=== PATIENT | male | born 1980 | race Caucasian/White ===

== ENCOUNTER 2021-05-04 22:32 | Inpatient (IN) | payer SELFPAY ==
[~2021-05-04] VITALS: Ht 170.2 cm; Wt 77.8 kg
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
[2021-05-04] MEDS ORDERED: PROPOFOL 10 MG/ML (20ML) VIAL. IV ONE (23:15)
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
[2021-05-04 23:35] VITALS: BP 148/84
--- NOTE | 2021-05-05 00:12 | RAD ---
XR EXAM OF ANKLE_RIGHT 2 VIEWS Clinical Indication: Reason: POST reduction / Spl. Instructions: / History: Comparison: Right ankle, 2 views, earlier same day. Findings: The tibiotalar articulation is now normal post reduction. Angulated fracture of the distal fibula has improved alignment. Lateral displacement of the distal fracture fragment has been reduced. Posterior displacement is improved. No acute fracture of the medial malleolus is identified. There is soft tis hemant swelling of the ankle. IMPRESSION: Successful reduction. Electronically signed by: Jaguar Miranda MD (05/05/2021 12:10 AM) [facility]
[2021-05-05] MEDS ORDERED: IV NORMAL SALINE 1000ML BAG 1,000 ML IV ONE (00:30)
[2021-05-05] MEDS ORDERED: ONDANSETRON PF 4 MG/2 ML VIAL. IVP PRN (00:30)
[2021-05-05 02:00] VITALS: BP 139/88
[2021-05-05] MEDS: MORPHINE SULFATE 4 MG/ML INJ. IVP PRN ×4 (02:01→08:27)
[2021-05-05 07:00] VITALS: BP 147/98
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
[2021-05-05] MEDS ORDERED: AMOX1TAB61 PO (09:02)
[2021-05-05] MEDS ORDERED: NAPR-514 PO (09:02)
--- NOTE | 2021-05-05 10:40 | NUR ---
SW following. Discussed with RN, pt from home with spouse and mother, room air, regular diet. Pt released from [facility]iary a month ago after 17 years incarceration. Rapid COVID-[address] Sampson, PT to work with pt and have crutches provided and could potentially discharge home today. Pt really wanting to go home. Med Assist following for self pay status. SW will continue to follow.
--- NOTE | 2021-05-05 11:49 | NUR ---
Discharge Note: TG SANTA Discharge instructions and discharge home medications reviewed with Patient and his and a copy given. All questions have been answered and understanding verbalized. The following instructions and handouts were given:information about weightbearing status, medications, activity, diet, follow up appointments. Discontinued lines and drains: IV line in right upper arm removed, catheter tip intact. Patient discharged to home with self care with , wheelchair used for mobility to discharge vehicle.
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
[2021-05-05] MEDS ORDERED: LACTOBACILLUS RHAMNOSUS GG 1 CAPSULE. PO SCH (21:00)
== END 2021-05-05 11:49 | disposition home or self-care (01) | DRG 494 ==
LOC: ER 22:32 → 4 NORTH 05-05 00:26
PROVIDERS: ADMIT Internal Medicine; ATTEND Internal Medicine
PROC: 0QSJ35Z Reposition Right Fibula with External Fixation Device, Percutaneous Approach (ICD-10-PCS; principal; 2021-05-05)
DX: S82.891B Other fracture of right lower leg, initial encounter for open fracture type I or II (principal); F11.10 Opioid abuse, uncomplicated; F15.10 Other stimulant abuse, uncomplicated; F17.210 Nicotine dependence, cigarettes, uncomplicated; F19.11 Other psychoactive substance abuse, in remission; S93.06XA Dislocation of unspecified ankle joint, initial encounter; V18.4XXA Pedal cycle driver injured in noncollision transport accident in traffic accident, initial encounter; Y93.55 Activity, bike riding; F19.10 Other psychoactive substance abuse, uncomplicated
CPT/HCPCS: 27788; 73590; 73600; 73620; 87426; 94760; J0690; J2270; J2704; J7030; U0003; U0005; 97116-GP; 97530-GP; 99285-25; G0378